=== PATIENT | female | born 1960 | race Two or more races ===

== ENCOUNTER 2018-11-24 10:50 | Emergency (ER) | payer OTHER ==
[~2018-11-24] VITALS: Ht 167.6 cm; Wt 90.7 kg
[~2018-11-24 10:50] MED LIST: CLONAZEPAM0.5 MG
[2018-11-24] MEDS ORDERED: PEPCID40 MG (11:04)
[2018-11-24] MEDS ORDERED: AMBIEN5 MG (11:04)
[2018-11-24] MEDS ORDERED: BACTRIM DS TAB1 EACH PO (16:37)
[2018-11-24] MEDS ORDERED: INTESTINEX680 M1 PO (16:37)
== END 2018-11-24 17:10 | disposition home or self-care (01) ==
LOC: ER 10:50
DX: K57.90 Diverticulosis of intestine, part unspecified, without perforation or abscess without bleeding (principal); N39.0 Urinary tract infection, site not specified; R10.32 Left lower quadrant pain

== ENCOUNTER 2021-07-10 06:58 | Emergency (ER) | payer OTHER ==
[~2021-07-10] VITALS: Ht 165.1 cm; Wt 90.7 kg
[~2021-07-10 06:58] MED LIST changes: +AMBIEN5 MG; +BACTRIM DS TAB1 EACH PO; +INTESTINEX680 M1 PO; +PEPCID40 MG
[2021-07-10] MEDS ORDERED: BUSPIRONE HCL5 MG PO (07:28)
== END 2021-07-10 13:04 | disposition home or self-care (01) ==
LOC: ER 06:58
DX: R10.32 Left lower quadrant pain (principal); K57.30 Diverticulosis of large intestine without perforation or abscess without bleeding

== ENCOUNTER 2021-08-23 07:33 | Emergency (ER) | payer OTHER ==
[~2021-08-23] VITALS: Ht 165.1 cm; Wt 89.4 kg
[~2021-08-23 07:33] MED LIST changes: +BUSPIRONE HCL5 MG PO
== END 2021-08-23 08:52 | disposition home or self-care (01) ==
LOC: ER 07:33
DX: N39.0 Urinary tract infection, site not specified (principal)

== ENCOUNTER 2021-12-25 11:04 | Emergency (ER) | payer OTHER ==
[~2021-12-25] VITALS: Ht 165.1 cm; Wt 90.7 kg
== END 2021-12-25 16:29 | disposition home or self-care (01) ==
LOC: ER 11:04
DX: N39.0 Urinary tract infection, site not specified (principal); Z88.0 Allergy status to penicillin; Z88.8 Allergy status to other drugs, medicaments and biological substances

== ENCOUNTER → 2022-06-04 | Emergency (ER) | payer OTHER | END | disposition left against medical advice (07) | LOC: ER 12:16 | DX: Z53.21 Procedure and treatment not carried out due to patient leaving prior to being seen by health care provider (principal) ==

== ENCOUNTER 2022-12-17 14:14 | Emergency (ER) | payer OTHER ==
[~2022-12-17] VITALS: Ht 167.6 cm; Wt 81.6 kg
== END 2022-12-17 15:41 | disposition home or self-care (01) ==
LOC: ER 14:14
DX: S61.220A Laceration with foreign body of right index finger without damage to nail, initial encounter (principal); Z88.0 Allergy status to penicillin; Z88.8 Allergy status to other drugs, medicaments and biological substances

== ENCOUNTER 2023-07-07 11:21 | Emergency (ER) | payer OTHER ==
[~2023-07-07] VITALS: Ht 165.1 cm; Wt 86.2 kg
== END 2023-07-07 14:26 | disposition home or self-care (01) ==
LOC: ER 11:22
DX: R53.81 Other malaise (principal); J06.9 Acute upper respiratory infection, unspecified; Z20.822 Contact with and (suspected) exposure to COVID-19; Z88.0 Allergy status to penicillin; Z88.8 Allergy status to other drugs, medicaments and biological substances

== ENCOUNTER → 2023-12-15 | Emergency (ER) | payer OTHER ==
[~2023-12-15] VITALS: Ht 165.1 cm; Wt 86.2 kg
== END | disposition left against medical advice (07) ==
LOC: ER 21:38
DX: Z53.21 Procedure and treatment not carried out due to patient leaving prior to being seen by health care provider (principal)

== ENCOUNTER 2023-12-26 16:25 | Emergency (ER) | payer OTHER ==
[~2023-12-26] VITALS: Ht 160 cm; Wt 80.7 kg
[2023-12-26] MEDS ORDERED: ACID REDUCER20 M1 (16:56)
[2023-12-26] MEDS ORDERED: CLINDAMYCIN PHOSPHATE 150 MG/ML (600mg) IM STA (17:12)
== END 2023-12-26 17:29 | disposition home or self-care (01) ==
LOC: ER 16:25
DX: R53.81 Other malaise (principal); L02.91 Cutaneous abscess, unspecified; Z88.0 Allergy status to penicillin; Z88.9 Allergy status to unspecified drugs, medicaments and biological substances
CPT/HCPCS: 96372; 99282; J3490

== ENCOUNTER 2024-02-04 08:47 | Emergency (ER) | payer OTHER ==
[~2024-02-04] VITALS: Ht 167.6 cm; Wt 86.2 kg
[2024-02-04 11:18] LABS: HEMATOCRIT 39.7 % (36.0-45.00); HEMOGLOBIN 13.6 g/dL (12.0-15.00); MEAN CORPUSCULAR HGB CONC 34.1 g/dl (32.0-36.0); PLATELET COUNT 254 K/uL (150-450); RED BLOOD COUNT 4.84 M/uL (4.00-6.00); RED CELL DISTRIBUTION WIDTH 13.6 % (11.5-14.5)
== END 2024-02-04 12:37 | disposition home or self-care (01) ==
LOC: ER 08:47
DX: J10.1 Influenza due to other identified influenza virus with other respiratory manifestations (principal); J40 Bronchitis, not specified as acute or chronic; F41.8 Other specified anxiety disorders; K57.30 Diverticulosis of large intestine without perforation or abscess without bleeding; Z88.0 Allergy status to penicillin; Z88.8 Allergy status to other drugs, medicaments and biological substances; Z20.822 Contact with and (suspected) exposure to COVID-19; Z86.16 Personal history of COVID-19

== ENCOUNTER → 2024-02-04 | Emergency (ER) | payer OTHER ==
[~2024-02-04] VITALS: Ht 165.1 cm; Wt 86.2 kg
[~2024-02-04] MED LIST changes: +ACID REDUCER20 M1
== END | disposition left against medical advice (07) ==
LOC: ER 00:19
DX: Z53.21 Procedure and treatment not carried out due to patient leaving prior to being seen by health care provider (principal)

== ENCOUNTER → 2024-08-01 | Emergency (ER) | payer OTHER ==
[~2024-08-01] MED LIST changes: +AMBIEN5 MG PO; +CIPRO500 MG PO; +CLONAZEPAM0.5 MG PO; +METRONIDAZOLE500 MG PO; +OMEPRAZOLE MAGN20 MG; +OSEL75CA PO
== END | disposition left against medical advice (07) ==
LOC: ER 18:31
DX: Z53.21 Procedure and treatment not carried out due to patient leaving prior to being seen by health care provider (principal)

== ENCOUNTER 2024-10-22 08:19 | Outpatient (CLI) | payer OTHER ==
[2024-10-23] MEDS ORDERED: EZETIMIBE10 MG PO (09:47)
[2024-10-23] MEDS ORDERED: LOSARTAN POTASS25 MG PO (09:47)
[2024-10-23] MEDS ORDERED: NAPROXEN SODIU550 MG (09:47)
[2024-10-23] MEDS ORDERED: METRONIDAZOLE500 MG PO (13:18)
[2024-10-23] MEDS ORDERED: MUPIROCIN15 GM TOP (13:18)
[2024-10-23] MEDS ORDERED: CIPRO500 MG PO (13:18)
== END 2024-10-22 08:31 | disposition home or self-care (01) ==
LOC: TOM 08:19
PROVIDERS: ATTEND Internal Medicine
DX: R10.2 Pelvic and perineal pain (principal); M54.50 Low back pain, unspecified; R26.89 Other abnormalities of gait and mobility
CPT/HCPCS: 74177; Q9965

== ENCOUNTER 2024-10-23 09:21 | Emergency (ER) | payer OTHER ==
[~2024-10-23] VITALS: Ht 167.6 cm; Wt 80.7 kg
[2024-10-23] MEDS ORDERED: EZETIMIBE10 MG PO (09:47)
[2024-10-23] MEDS ORDERED: NAPROXEN SODIU550 MG (09:47)
[2024-10-23] MEDS ORDERED: LOSARTAN POTASS25 MG PO (09:47)
[2024-10-23 09:48] VITALS: BP 145/94; O2SAT 100
[2024-10-23] MEDS ORDERED: METRONIDAZOLE500 MG PO (13:18)
[2024-10-23] MEDS ORDERED: CIPRO500 MG PO (13:18)
[2024-10-23] MEDS ORDERED: MUPIROCIN15 GM TOP (13:18)
== END 2024-10-23 13:38 | disposition home or self-care (01) ==
LOC: ER 09:23
DX: K57.32 Diverticulitis of large intestine without perforation or abscess without bleeding (principal); L98.9 Disorder of the skin and subcutaneous tissue, unspecified; I10 Essential (primary) hypertension; E11.9 Type 2 diabetes mellitus without complications; Z88.0 Allergy status to penicillin; Z88.8 Allergy status to other drugs, medicaments and biological substances

== ENCOUNTER 2025-02-09 11:43 | Emergency (ER) | payer OTHER ==
[~2025-02-09] VITALS: Ht 165.1 cm; Wt 79.8 kg
[~2025-02-09 11:43] MED LIST changes: +EZETIMIBE10 MG PO; +LOSARTAN POTASS25 MG PO; +MUPIROCIN15 GM TOP; +NAPROXEN SODIU550 MG
[2025-02-09 16:08] LABS: URINE APPEARANCE Clear; URINE BILIRRUBIN Negative (NEGATIVE); URINE BLOOD Moderate; URINE COLOR Yellow; URINE GLUCOSE Negative (NEGATIVE); URINE KETONE Negative (NEGATIVE); URINE LEUKOCYTE Moderate; URINE NITRATE Negative; URINE PROTEIN Negative (NEGATIVE); URINE UROBILINOGEN 0.2 E.U./dl
[2025-02-09 16:09] LABS: HEMATOCRIT 40.7 % (36.0-45.00); HEMOGLOBIN 13.9 g/dL (12.0-15.00); MEAN CELL VOLUME 83.7 fL (80.00-100.00); MEAN CORPUSCULAR HEMOGLOBIN 28.5 pg (27.00-32.0); MEAN CORPUSCULAR HGB CONC 34.1 g/dl (32.0-36.0); PLATELET COUNT 228 K/uL (150-450); RED BLOOD COUNT 4.87 M/uL (4.00-6.00); RED CELL DISTRIBUTION WIDTH 13.4 % (11.5-14.5)
[2025-02-09 16:11] LABS: URINE BACTERIA 347.5 uL (0.0-1933); URINE EPITHELIAL CELLS 32.4 uL (0.0-38.8); URINE RBC 20.3 uL (0.0-20.8); URINE WBC 171.7 uL (0.0-23.2)
[2025-02-09 16:15] LABS: ALBUMIN 4.3 gm/dL (3.4-5.0); BILIRUBIN TOTAL 0.41 mg/dL (0.3-1.2); CALCIUM 9.5 mg/dL (8.5-10.1); CREATININE SERUM 0.83 mg/dL (0.55-1.02); GFR 68.78; POTASSIUM 4.29 mEq/L (3.5-5.1); TOTAL PROTEIN 8.3 gm/dL (6.4-8.2)
[2025-02-09 16:23] LABS: URINE CAST 0.29 uL (0.0-1.40)
[2025-02-09 16:26] LABS: COVID-19 AG NEGATIVE (NEGATIVE); INFLUENZA A AG NEGATIVE (NEGATIVE)
[2025-02-09] MEDS ORDERED: CIPRO500 MG PO (16:41)
== END 2025-02-09 17:40 | disposition home or self-care (01) ==
LOC: ER 11:44
PROVIDERS: General Practice
DX: R53.81 Other malaise (principal); R35.0 Frequency of micturition; R10.2 Pelvic and perineal pain; Z20.822 Contact with and (suspected) exposure to COVID-19; I10 Essential (primary) hypertension; Z88.0 Allergy status to penicillin; Z88.8 Allergy status to other drugs, medicaments and biological substances

== ENCOUNTER 2025-03-11 07:52 | Outpatient (CLI) | payer OTHER ==
[2025-03-12] MEDS ORDERED: PEPCID20 MG PO (08:26)
== END 2025-03-11 07:58 | disposition home or self-care (01) ==
LOC: TOM 07:52
PROVIDERS: ATTEND Internal Medicine Gastroenterology
DX: K57.92 Diverticulitis of intestine, part unspecified, without perforation or abscess without bleeding (principal)
CPT/HCPCS: 74177; Q9965

== ENCOUNTER 2025-03-19 07:03 | Day surgery (SDC) | payer OTHER ==
[2025-03-12 08:26] VITALS: BP 100/68
[2025-03-12 09:04] LABS: BASO % 0.6 % (0.1-1.2); EOS # 0.12 (0.04-0.54); EOS % 1.1 % (0.7-7.0); HEMATOCRIT 38.7 % (34.1-44.9); HEMOGLOBIN 12.8 g/dL (11.2-15.7); MEAN CORPUSCULAR HEMOGLOBIN 27.7 pg (25.6-32.2); MONO # 0.87 (0.24-0.82); MONO % 8.1 % (4.7-12.5); NEUT # 5.14 (1.56-6.13); PLATELET COUNT 229 K/uL (163-369); RED BLOOD COUNT 4.62 M/uL (3.93-5.22)
[2025-03-12 09:08] LABS: PH,URINE 5.5 (5.0-8.0); URINE APPEARANCE Clear; URINE BILIRRUBIN Negative (NEGATIVE); URINE BLOOD Negative; URINE COLOR Yellow; URINE GLUCOSE Negative (NEGATIVE); URINE KETONE Negative (NEGATIVE); URINE LEUKOCYTE Small; URINE NITRATE Negative; URINE PROTEIN Negative (NEGATIVE); URINE UROBILINOGEN 0.2 E.U./dl
[2025-03-12 09:13] LABS: URINE BACTERIA 36.7 uL (0.0-1933); URINE EPITHELIAL CELLS 14.8 uL (0.0-38.8); URINE RBC 5.4 uL (0.0-20.8); URINE WBC 10.5 uL (0.0-23.2)
[2025-03-12 09:54] LABS: INR 0.95; PARTIAL THROMBOPLASTIN TIME 24.5 SECONDS (22.0-34.0); PROTHROMBIN TIME 10.4 SECONDS (9.0-11.5)
[2025-03-12 10:05] LABS: ALBUMIN 3.8 gm/dL (3.4-5.0); BILIRUBIN TOTAL 0.26 mg/dL (0.3-1.2); CALCIUM 8.5 mg/dL (8.5-10.1); CREATININE SERUM 0.76 mg/dL (0.55-1.02); GFR 76.14; GLOBULINA 3.4 G/DL (2.4-3.5); POTASSIUM 3.88 mEq/L (3.5-5.1); TOTAL PROTEIN 7.2 gm/dL (6.4-8.2)
[~2025-03-19] VITALS: Ht 165.1 cm; Wt 79.8 kg
[~2025-03-19 07:03] MED LIST changes: +PEPCID20 MG PO
[2025-03-19] MEDS ORDERED: CIPROFLOXACIN IN 5 % DEXTROSE 400 MG/200 ML PIGGYBAG IV ONE (09:44)
[2025-03-19] MEDS ORDERED: LIDOCAINE HCL 1% 20 ML VIAL IJ ONE (11:48)
[2025-03-19] MEDS ORDERED: LIDOCAINE HCL 1%/EPINEPHRINE 20ML VIAL IJ ONE (11:49)
== END 2025-03-19 14:20 | disposition home or self-care (01) ==
LOC: CIR.AMB 07:03
PROVIDERS: ATTEND Specialist
DX: D21.12 Benign neoplasm of connective and other soft tissue of left upper limb, including shoulder (principal); Z88.0 Allergy status to penicillin

== ENCOUNTER 2025-04-26 07:57 | Outpatient (CLI) | payer OTHER | END 2025-04-26 08:03 | disposition home or self-care (01) | LOC: TOM 07:57 | PROVIDERS: ATTEND Internal Medicine Gastroenterology | DX: K57.92 Diverticulitis of intestine, part unspecified, without perforation or abscess without bleeding (principal) ==

== ENCOUNTER 2025-08-16 14:02 | Emergency (ER) | payer OTHER ==
[~2025-08-16] VITALS: Ht 165.1 cm; Wt 81.6 kg
[2025-08-16] MEDS ORDERED: FAMOtidine 10 MG/ML (4ML VIAL) IV ONE (16:00)
[2025-08-16] MEDS ORDERED: KETOROLAC TROMETHAMINE 30 MG VIAL IV ONE (16:00)
[2025-08-16] MEDS ORDERED: CIPROFLOXACIN IN 5 % DEXTROSE 400 MG/200 ML PIGGYBAG IV ONE ×2 (16:00→16:20)
[2025-08-16] MEDS ORDERED: 0.9 % SODIUM CHLORIDE 1,000 ML IV ONE (16:00)
[2025-08-16] MEDS ORDERED: FAMOTIDINE/PF 20 MG/2 ML VIAL ONE (16:20)
[2025-08-16] MEDS ORDERED: KETOROLAC TROMETHAMINE 30 MG VIAL ONE (16:20)
[2025-08-16 17:04] LABS: BASO % 0.8 % (0.1-1.2); EOS # 0.15 (0.04-0.54); EOS % 2.0 % (0.7-7.0); LYMPH # 2.71 (1.18-3.74); LYMPH % 35.6 % (19.3-53.1); MEAN PLATELET VOLUME 10.50 fl (9.4-12.4); MONO # 0.63 (0.24-0.82); MONO % 8.3 % (4.7-12.5); NEUT # 4.06 (1.56-6.13); NEUT % 53.2 % (34.0-71.1); RED CELL DISTRIBUTION WIDTH 12.2 % (11.6-14.4)
[2025-08-16 17:06] LABS: URINE APPEARANCE Clear; URINE BILIRRUBIN Negative (NEGATIVE); URINE BLOOD Negative; URINE COLOR Yellow; URINE GLUCOSE Negative (NEGATIVE); URINE KETONE Negative (NEGATIVE); URINE LEUKOCYTE Trace; URINE NITRATE Negative; URINE PROTEIN Negative (NEGATIVE); URINE UROBILINOGEN 0.2 E.U./dl
[2025-08-16 17:09] LABS: URINE BACTERIA 119.9 uL (0.0-1933); URINE EPITHELIAL CELLS 87.3 uL (0.0-38.8); URINE RBC 2.1 uL (0.0-20.8); URINE WBC 16.9 uL (0.0-23.2)
[2025-08-16 17:33] LABS: INR 1.05
[2025-08-16 17:44] LABS: ALT/SGPT 43.0 U/L (12-78); AST/SGOT 38.0 U/L (15-37); BILIRUBIN TOTAL 0.25 mg/dL (0.3-1.2); BUN CREA RATIO 12.0 (7.0-25.0); CREATININE SERUM 1.1 mg/dL (0.55-1.02); GFR 49.54; GLOBULINA 3.8 G/DL (2.4-3.5); GLUCOSE FASTING 171.0 mg/dL (65-100); OSMOLALITY SERUM 284.0 MOSM/KG (275-295)
[2025-08-16 17:45] LABS: URINE CAST 0.43 uL (0.0-1.40)
[2025-08-16 17:47] LABS: URINE MUCUS SCANT
[2025-08-16 17:49] LABS: TYPE CELLS SQUAMOUS
[2025-08-16] MEDS ORDERED: PEPCID AC20 MG PO (18:31)
[2025-08-16] MEDS ORDERED: LEVSIN/SL0.125 MG SL (18:31)
[2025-08-16] MEDS ORDERED: METRONIDAZOLE500 MG PO (18:31)
[2025-08-16] MEDS ORDERED: CIPRO500 MG PO (18:31)
== END 2025-08-16 19:08 | disposition home or self-care (01) ==
LOC: ER 14:02
PROVIDERS: General Practice
DX: R10.32 Left lower quadrant pain (principal); R10.9 Unspecified abdominal pain; I10 Essential (primary) hypertension; E11.9 Type 2 diabetes mellitus without complications; Z88.0 Allergy status to penicillin
CPT/HCPCS: 36415; 74176; 96365; 96366; 99284; J0744; J1885; J3490; J7030